=== PATIENT | male | born 2005 | race Caucasian/White ===

== ENCOUNTER 2023-12-11 07:12 | Emergency (ER) | payer MEDICAID, SELFPAY ==
[2023-12-11 07:16] VITALS: BP 133/71; PULSE 93; RESP 16; TEMP 36.5; O2SAT 99
--- NOTE | 2023-12-11 07:20 | W.ED.GENAD ---
HPI General Date/Time Provider Initiated Documentation: 12/11/23 07:19. HPI Narrative: MDM This is an overall very well-appearing normothermic and not tachycardic 18-year-old male with a laceration to his back which will require primary closure and several others on his right ankle which will allow to heal by secondary intention. Patient did not lose consciousness and based on [place] CT head no indication for CT head. No neck trauma nor pain to suggest benefit from CT cervical spine. [place] Head CT Criteria Major Criteria GCS < 15 : [No] Open or depressed skull Fx: [No] Sign of Basilar Skull Fx: [No] > 2 Episodes Vomiting: [No] Anticoagulation: [No] Age > 65: [No] Minor Criteria Retrograde Amnesia >30min: [No] Dangerous Mechanism: [No] Per [place] head CT rules, CT head not obtained. The patient had a GCS of 15, no open/depressed skull fracture, no signs of basilar skull fracture (hemotympanum, raccoon eyes, rockwell's sign, CSF [place]/Rhinorrhea), no vomiting, and is less than 65 years of age. No signs of trauma to the chest and no shortness of breath so doubt pneumothorax so I did not obtain chest x-ray. Patient moving all 4 extremities so my suspicion for any acute osseous abnormalities is exceedingly low. Based on the patient's primary immunizations during childhood medication for updated tetanus status. Patient and I discussed suture remove in the ED, at urgent care or with PCP in 7-10 days. We also discuss return to the ED for any streaking signs of infection, foul smell drainage from his wounds, fevers or any other concerns. He understood his return indications and was discharged with an empiric trial of expectant outpatient managment. Chronic conditions affecting the care of the patient: N/A History obtained from an outside historian: N/A External record review: N/A Medications: N/A Social determinants of health affecting disposition: N/A Management discussed with: N/A Treatment/interventions considered: N/A Response to therapies provided: N/A HPI This is a previously healthy 18-year-old male up-to-date with immunizations not on any home medications arriving to the emergency department via private vehicle after a pane of glass fell on him just prior to arrival. Patient was reportedly opening a window at his rental to allow some cool air into his warm residence. The pain of glass from a window fell out of the frame and shattered on the patient. He did not notice any significant lacerations that required control of bleeding. He denies any anticoagulants. He did not lose consciousness. He was in his previous state of health earlier today with no fevers chills nausea nor vomiting. Exam General: Well-appearing in no acute distress speaking in complete sentences. Head: Normocephalic, atraumatic. Eye: Extraocular eye movements intact. No conjunctival injection. No scleral icterus. Ear, nose, mouth, throat: Grossly normal inspection. Normal voice, handling secretions normally. Neck: Trachea midline. No midline cervical spinal tenderness Cardiovascular: Well-perfused distal extremities. Respiratory: Nonlabored respiration. Gastrointestinal: Nondistended abdomen. Musculoskeletal: No edema. Moving all 4 extremities spontaneously. Skin: On the patient's left upper back there is a small, ~2 cm laceration. On the right ankle, medial aspect there are 2 less than 1 cm superficial lacerations that are also hemostatic. Neurologic: Alert and appropriate, no apparent acute deficits. GCS 15. Psychiatric: Mood and manner are appropriate. Grooming and personal hygiene are appropriate. Related Data Home Medications Medication Instructions Recorded Confirmed Unknown [No Known Home Meds] 12/11/23 12/11/23 Allergies Allergy/AdvReac Type Severity Reaction Status Date / Time No Known Allergies Allergy Unverified 12/11/23 07:16 General Stated Complaint: Laceration MEGHA: 4 Course Vital Signs Vital signs: Vital Signs Temperature 36.5 C 12/11/23 07:16 Pulse 93 H 12/11/23 07:16 Respiratory Rate 16 12/11/23 07:16 Blood Pressure 133/71 12/11/23 07:16 Pulse Oximetry 99 12/11/23 07:16 Temperature 36.5 C 12/11/23 07:16 Temperature Source Temporal Artery Scan 12/11/23 07:16 Pulse 93 H 12/11/23 07:16 Respiratory Rate 16 12/11/23 07:16 Blood Pressure 133/71 12/11/23 07:16 Blood Pressure Position Sitting 12/11/23 07:16 Pulse Oximetry 99 12/11/23 07:16 Oxygen Delivery Method Room Air 12/11/23 07:16 Oxygen Flow Rate 0 12/11/23 07:16 Pain Level 4 12/11/23 07:16 Procedures Laceration Laceration 1: Site: back Side (If applicable): left Size (cm): 2 Description: linear Depth: simple, single layer Local Anesthetic: other anesthetic (LET) Pre-repair: wound explored and irrigated extensively Skin layer closed with: nylon Size (cm): 4-0 Number of sutures: 1 Technique: simple, interrupted Medical Decision Making Quality:SDOH Health Related Social Needs: No Data to Display PFSH All Active Problems (Updated 12/11/23 @ 07:50 by Ethan Daley MD) Laceration of back (Acute) Superficial laceration of ankle (Acute) Social History Smoking/Tobacco Use Status: Never Smoking risk assessment performed?: Yes Alcohol Intake: current Alcohol Intake frequency: holidays/special occasions only Alcohol type: beer Drug use: Never Substance use type: does not use Housing: apartment Do you feel safe at home: Yes Do you feel safe in your relationship?: Yes Discharge Plan Disposition Patient Disposition: Home Discharge Details Clinical Impression: Superficial laceration of ankle, Laceration of back Primary Care Provider: Vandana,Local ED Provider: Ethan Daley Home Meds and New Rx's Prescriptions: No Action No Known Home Meds Discharge Instructions Instructions: Laceration (ED) Additional Instructions: You are seen in the emergency department for your lacerations. The laceration on your back was closed with sutures that need to be removed in 7 to 10 days. This can be accomplished either with your primary care provider, an urgent care, or by returning to the emergency department. As we discussed if you see streaking signs of infection develop any fevers or have any foul-smelling drainage from your wounds please return to the emergency department. For your pain please take medications as follows: 1. Take acetaminophen (Tylenol), 1,000 mg (two 500 mg tabs) every 6 hours [2. Take ibuprofen (Advil), 400 mg every 6 hours.] Discharge Data Discharge Date/Time-TO BE ENTERED AT DEPARTURE: 12/11/23 08:31
[2023-12-11] MEDS: Lidocaine/Epinephri/Tetracaine Topical Gel 3 ML TP (08:22)
== END 2023-12-11 08:31 | disposition home or self-care (01) ==
LOC: ER 08:33
PROVIDERS: Emergency Provider Emergency Medicine
DX: S21.212A Laceration without foreign body of left back wall of thorax without penetration into thoracic cavity, initial encounter (principal); S91.011A Laceration without foreign body, right ankle, initial encounter; W25.XXXA Contact with sharp glass, initial encounter; Y93.89 Activity, other specified; Y92.018 Other place in single-family (private) house as the place of occurrence of the external cause
CPT/HCPCS: 12001; 99283

== ENCOUNTER 2023-12-22 15:45 | Emergency (ER) | payer MEDICAID, SELFPAY ==
[2023-12-22 15:51] VITALS: BP 126/70; PULSE 98; RESP 15; TEMP 36.8; O2SAT 100
--- NOTE | 2023-12-22 16:04 | ED.GENADUL_ITS ---
Discharge Plan Disposition Patient Disposition: Home Condition: Improving Discharge Details Clinical Impression: Visit for suture removal Primary Care Provider: Unknown,Unknown ED Provider: Raymundo De Leon Home Meds and New Rx's Prescriptions: No Action sucralfate [Carafate] 1 gram tablet 1 g PO BID Qty: 60 0RF ondansetron 4 mg tablet,disintegrating 4 mg PO Q8H Qty: 20 0RF pantoprazole [Protonix] 40 mg tablet,delayed release (DR/EC) 40 mg PO DAILY Qty: 60 0RF Discharge Instructions Instructions: Laceration (ED), Stitches Removal (ED) Discharge Data Discharge Date/Time-TO BE ENTERED AT DEPARTURE: 12/22/23 16:09 HPI General Date/Time Provider Initiated Documentation: 12/22/23 15:54 . HPI Narrative: 18-year-old male presents for suture removal once interrupted suture left shoulder. Related Data Home Medications Medication Instructions Recorded Confirmed ondansetron 4 mg disintegrating 4 mg PO Q8H #20 tabs 02/04/24 tablet pantoprazole 40 mg tablet,delayed 40 mg PO DAILY #60 tabs 02/04/24 release (Protonix) sucralfate 1 gram tablet (Carafate) 1 g PO BID #60 tabs 02/04/24 Previous Rx's Medication Instructions Recorded ondansetron 4 mg disintegrating 4 mg PO Q8H #20 tabs 02/04/24 tablet pantoprazole 40 mg tablet,delayed 40 mg PO DAILY #60 tabs 02/04/24 release (Protonix) sucralfate 1 gram tablet (Carafate) 1 g PO BID #60 tabs 02/04/24 Allergies Allergy/AdvReac Type Severity Reaction Status Date / Time No Known Allergies Allergy Unverified 02/03/24 21:57 General Stated Complaint: SutureRem MEGHA: 4 Review of Systems Narrative: Review of Systems Constitutional: negative Eyes: negative ENT: negative Cardiovascular: negative Respiratory: negative Gastrointestinal: negative : negative Musculoskeletal: negative Skin: Suture removal Neurologic: negative Psych: negative Exam Narrative Exam Narrative: Skin: Well-healing 1 cm laceration to left shoulder posterior, simple interrupted nonabsorbable suture material in place clean dry intact Course Vital Signs Vital signs: Vital Signs Temperature 36.8 C 12/22/23 15:51 Pulse 98 H 12/22/23 15:51 Respiratory Rate 15 12/22/23 15:51 Blood Pressure 126/70 12/22/23 15:51 Pulse Oximetry 100 12/22/23 15:51 Temperature 36.8 C 12/22/23 15:51 Temperature Source Temporal Artery Scan 12/22/23 15:51 Pulse 98 H 12/22/23 15:51 Respiratory Rate 15 12/22/23 15:51 Respiratory Effort Normal 12/22/23 15:52 Blood Pressure 126/70 12/22/23 15:51 Blood Pressure Position Sitting 12/22/23 15:51 Pulse Oximetry 100 12/22/23 15:51 Oxygen Delivery Method Room Air 12/22/23 15:51 Oxygen Flow Rate 0 12/22/23 15:51 Pain Level 0 12/22/23 15:51 Medical Decision Making 18-year-old male presents for suture removal, well-healed 1 cm superficial laceration to posterior aspect of left shoulder, suture easily removed, no evidence of infection or wound dehiscence. 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
== END 2023-12-22 16:09 | disposition home or self-care (01) ==
PROVIDERS: Emergency Provider Emergency Medicine
DX: Z48.02 Encounter for removal of sutures (principal)

== ENCOUNTER 2024-02-03 21:47 | Emergency (ER) | payer MEDICAID, SELFPAY ==
[2024-02-03 21:51] VITALS: BP 121/56; PULSE 77; RESP 16; TEMP 36.3; O2SAT 99
--- NOTE | 2024-02-03 22:26 | ED.GENADUL_ITS ---
Discharge Plan Disposition Patient Disposition: Home Condition: Good Discharge Details Clinical Impression: Abdominal pain, Vomiting, Dehydration Primary Care Provider: None,None ED Provider: Flavio Barros Home Meds and New Rx's Prescriptions: New sucralfate [Carafate] 1 gram tablet 1 g PO BID Qty: 60 0RF ondansetron 4 mg tablet,disintegrating 4 mg PO Q8H Qty: 20 0RF pantoprazole [Protonix] 40 mg tablet,delayed release (DR/EC) 40 mg PO DAILY Qty: 60 0RF Discharge Instructions Instructions: Gastritis (ED) Additional Instructions: At this time your laboratory workup has returned very reassuring. There is no signs of significant infection, pancreatitis, gallbladder problem, or other significant abnormality. The CAT scan shows no evidence of tumor, mass, or other major issue. You do have a small hiatal hernia which is when your stomach goes slightly up into the space where your esophagus is. This can cause some of the symptoms that you have been having more chronically. In the meantime, we have placed a referral with a surgeon for an EGD and further evaluation. They will contact you for an appointment time. Please stay well- hydrated, take the Protonix and Carafate to help with the irritation in your stomach. Take the Zofran only as needed for nausea. Avoid spicy foods, tomato- based products and mint products. If you notice any worsening of your symptoms, or any new symptoms such as vomiting, diarrhea, fever, chills, shortness of breath, chest pain, numbness, weakness, or fainting , please return immediately to the emergency department for reevaluation. Please follow up with your primary care provider as soon as possible for reassessment and reevaluation. As always, it was a pleasure participating in your medical care today. Stand Alone Forms: Work Release Referrals: Marissa Jeffers MD [ [facility] STAFF PHYSICIAN] - Rayray Meneses MD [ [facility] STAFF PHYSICIAN] - Amber Shah DO [OSTEOPATHIC DOCTOR] - [facility] General Date/Time Provider Initiated Documentation: 02/03/24 22:06 . [facility] Narrative: 18-year-old male who presents today for evaluation of abdominal pain and vomiting. Patient states that for the past year he has had fairly consistent episodes of vomiting every month, usually occurs in the morning. He he has mild lower abdominal pain during that time which she describes as sharp and achy. It then improves throughout the day. Over the last week he has had notable worsening and increased frequency of the symptoms occurring nearly every day. He has been vomiting multiple times throughout the day over the last 3 to 4 days, and this is significantly affecting his life. He is still keeping liquids down, he denies any significant diarrhea. No hematochezia. He denies any blood in his vomitus. He states that it is usually food that he throws up however over the last 24 hours it has been more bile and stomach acid like. He denies any new medications, or lifestyle changes. Patient does have a history of marijuana nightly that he takes for his chronic back pain but states that he has not changed the amount or frequency, and has not changed where he gets it from. He has not had an EGD or colonoscopy in the past. Family history is positive for stomach ulcer. He denies any excessive spicy foods. No other sick contacts at home. No other complaints at this time. He has not taken any medications to help his symptoms. Related Data Home Medications Medication Instructions Recorded Confirmed ondansetron 4 mg disintegrating 4 mg PO Q8H #20 tabs 02/04/24 tablet pantoprazole 40 mg tablet,delayed 40 mg PO DAILY #60 tabs 02/04/24 release (Protonix) sucralfate 1 gram tablet (Carafate) 1 g PO BID #60 tabs 02/04/24 Previous Rx's Medication Instructions Recorded ondansetron 4 mg disintegrating 4 mg PO Q8H #20 tabs 02/04/24 tablet pantoprazole 40 mg tablet,delayed 40 mg PO DAILY #60 tabs 02/04/24 release (Protonix) sucralfate 1 gram tablet (Carafate) 1 g PO BID #60 tabs 02/04/24 Allergies Allergy/AdvReac Type Severity Reaction Status Date / Time No Known Allergies Allergy Unverified 02/03/24 21:57 General Stated Complaint: Abd Prob MEGHA: 3 Review of Systems All systems reviewed & are unremarkable except as noted in HPI and below Exam Narrative Exam Narrative: 1.Const: Well-nourished, Well-developed, appearing stated age 2.Eyes: PERRL, no conjunctival injection, and symmetrical lids. 3.ENT: Atraumatic external nose and ears. Dry MM. Neck: Symmetric, trachea midline, No thyromegaly. 4.CVS: +S1/S2, No murmurs or gallops. Peripheral pulses 2+ and equal in all extremities. Brisk capillary refill in all extremities. 5.RESP: Unlabored respiratory effort. Clear to auscultation bilaterally. No wheezes rales or rhonchi 6.GI: Soft, Nondistended, No hepatosplenomegaly. No guarding or rebound. Mild achiness in the infraumbilical region. No pain to McBurney's point, negative Nuñez sign. No inguinal hernia. No scrotal or testicular tenderness. 7.MSK: Normocephalic/Atraumatic, Extremities w/o deformity or ttp No cyanosis or clubbing, Normal movement of all extremities 8.Skin: Warm, Dry. No rashes or lesions. 9.Neuro: curtain feller blindstitch II-XII grossly intact. Sensation grossly intact, no focal ne urologic deficits. 10.Psych: (AAO) x3. Appropriate mood and affect Course Vital Signs Vital signs: Vital Signs Temperature 36.3 C L 02/03/24 21:51 Pulse 77 02/03/24 21:51 Respiratory Rate 16 02/03/24 21:51 Blood Pressure 121/56 L 02/03/24 21:51 Pulse Oximetry 99 02/03/24 21:51 Temperature 36.3 C L 02/03/24 21:51 Temperature Source Skin 02/03/24 21:51 Pulse 77 02/03/24 21:51 Respiratory Rate 16 02/03/24 21:51 Respiratory Effort Normal, Non-Labored 02/03/24 21:55 Blood Pressure 121/56 L 02/03/24 21:51 Blood Pressure Position Sitting 02/03/24 21:51 Pulse Oximetry 99 02/03/24 21:51 Oxygen Delivery Method Room Air 02/03/24 21:51 Oxygen Flow Rate 0 02/03/24 21:51 Pain Level 5 02/03/24 21:51 Medical Decision Making 18-year-old male who presents today for evaluation of abdominal pain and vomiting. Patient states that for the past year he has had fairly consistent episodes of vomiting every month, usually occurs in the morning. He he has mild lower abdominal pain during that time which she describes as sharp and achy. It then improves throughout the day. Over the last week he has had notable worsening and increased frequency of the symptoms occurring nearly every day. He has been vomiting multiple times throughout the day over the last 3 to 4 days, and this is significantly affecting his life. He is still keeping liquids down, he denies any significant diarrhea. No hematochezia. He denies any blood in his vomitus. He states that it is usually food that he throws up however over the last 24 hours it has been more bile and stomach acid like. He denies any new medications, or lifestyle changes. Patient does have a history of marijuana nightly that he takes for his chronic back pain but states that he has not changed the amount or frequency, and has not changed where he gets it from. He has not had an EGD or colonoscopy in the past. Family history is positive for stomach ulcer. He denies any excessive spicy foods. No other sick contacts at home. No other complaints at this time. He has not taken any medications to help his symptoms. Physical exam demonstrates well-appearing male, dry mucous membranes, mild achiness in the infraumbilical region. No guarding or rebound, no hernias. Patient otherwise looks well. Differential is highest for baseline of potential chronic gastric irritation or potential ulcer. He does not drink alcohol much at all, so I doubt esophagitis. However the lower component of his pain is slightly atypical. I suspect there is an acute component going on at this time. 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 Chronic pancreatitis or chronic pancreatic cyst is on the differential. Diverticulitis, irritable bowel syndrome, or celiac/Crohn's is of concern as well. Will give Carafate, Protonix, Zofran, rehydrate, check for concerning electrolyte lab abnormalities, get a CT scan of his abdomen to rule out acute anatomic processes, monitor closely and reassess. 12:20 AM Patient's laboratory workup is returned, no significant abnormalities. Lipase is normal, bilirubin normal, electrolytes normal. Urinalysis shows no evidence of kidney stone or blood or infection. After Protonix and Carafate patient is feeling improved, vital signs normal after 1 L of lactated Ringer's. CT scan shows evidence of mild hiatal hernia, but no other acute process otherwise. Patient is stable for discharge. I suspect the hiatal hernia is causing some chronic gastric irritation likely bringing about the patient's regular episodes of vomiting. Recommend avoidance of spicy foods, tomato-based products and citrus products. Will give Protonix and Zofran and Carafate for home use. No evidence of an acute surgical abdomen on reexamination. Patient is tolerating p.o. well. I do feel that patient is stable for discharge at this time. With no other evidence of significant life-threatening etiology at this time we will place outpatient referral for EGD for further gastric assessment. Discussed red flags for which to return. I have extensively reviewed the treatment plan and discharge instructions with the patient and their family. I have addressed all patient concerns at this time. The patient and family was made aware of what symptoms to monitor for that would warrant a return to the emergency department. Discussed the plan with the patient and family, they demonstrate verbal understanding and agreement with our assessment and plan at this time. The documentation in this chart was dictated using [employer] dictation software. Please excuse any dictation errors. FINDINGS: Diaphragm: Small hiatal hernia. Liver: Normal. No mass. Gallbladder and bile ducts: Normal. No calcified stones. No ductal dilation. Pancreas: Normal. No ductal dilation. Spleen: Normal. No splenomegaly. Adrenal glands: Normal. No mass. Kidneys and ureters: Normal. No hydronephrosis. Stomach and bowel: No dilated loops of small bowel or colonic dilatation. Stomach is distended with recently ingested food and a small amount of gas. Appendix: Normal appendix. Intraperitoneal space: Unremarkable. No free air. No significant fluid collection. Vasculature: Unremarkable. No abdominal aortic aneurysm. Lymph nodes: Unremarkable. No enlarged lymph nodes. Urinary bladder: Unremarkable as visualized. Reproductive: Unremarkable as visualized. Bones/joints: Unremarkable. No acute fracture. Soft tissues: Unremarkable. IMPRESSION: No acute findings. Thank you for allowing us to participate in the care of your patient. 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
[2024-02-03] MEDS: Lactated Ringers 1,000 ML 1000 ML IV (22:44)
[2024-02-03] MEDS: Sucralfate 1 GM TAB 2 GM PO (22:44)
[2024-02-03] MEDS: Ondansetron 4 MG/2 ML VIAL IVP (22:44)
[2024-02-03] MEDS: Pantoprazole 40 MG VIAL IVP (22:44)
[2024-02-03 22:48] LABS: Abs Immature Grans 0.01 10^3/uL (0.0-0.06); Absolute Basophil Count 0.07 10^3/uL (0.0-0.2); Absolute Eosinophil Count 0.58 10^3/uL (0.0-0.7); Absolute Lymphocyte Count 2.97 10^3/uL (1.2-3.4); Absolute Monocyte Count 0.53 10^3/uL (0.1-0.8); Absolute Neutrophil Count 3.62 10^3/uL (1.2-6.7); Basophils % 0.9; Eosinophils % 7.5; HCT 46.1 % (40.0-50.0); HGB 15.6 g/dL (13.5-17.5); Immature Grans % 0.1; Lymphocytes % 38.2; MCH 29.9 pg (27.0-33.0); MCHC 33.8 % (32.0-36.0); MCV 89 fL (80-95); MPV 11.3 fL (8.0-11.0); Monocytes % 6.8; Neutrophils % 46.5; Platelet Count 214 10^3/uL (130-400); RBC 5.21 10^6/uL (4.36-5.78); RDW 13.2 % (11.8-14.1); WBC 7.78 10^3/uL (4.4-10.8)
[2024-02-03 23:04] LABS: ALT 26 U/L (16-63); AST 22 U/L (15-37); Albumin 4.3 g/dL (3.4-5.0); Alkaline Phosphatase 74 U/L (46-116); Anion Gap 5.8 mmol/L (3-11); BUN 10 mg/dL (7-18); Bilirubin, Total 0.5 mg/dL (0.2-1.0); CO2 32.2 mmol/L (21.0-32.0); CREATININE 0.9 mg/dL (0.70-1.30); Calcium 8.7 mg/dL (8.5-10.1); Chloride 104 mmol/L (98-107); Estimated GFR 125.39 (mL/min/1.73m2); Glucose 70 mg/dL (74-106); Lipase 15 U/L (16-77); Potassium 3.6 mmol/L (3.5-5.1); Sodium 142 mmol/L (136-145); Total Protein 7.6 g/dL (6.4-8.2)
--- NOTE | 2024-02-03 23:05 | DI.CT_ITS ---
Exam(s) CT ABDOMEN PELVIS W EXAM: CT ABDOMEN PELVIS W CLINICAL HISTORY: vomiting, infraumbilical pain TECHNIQUE: Imaging Protocol: Axial computed tomography images with coronal and sagittal reformatted images were created and reviewed. CONTRAST MATERIAL: Intravenous: Omnipaque 350 Contrast volume:100 mL Oral: No COMPARISON: No exams were available for comparison FINDINGS: ABDOMEN: Lung Bases: Normal where visualized. Liver: Normal density. No measurable mass. Portal, Superior Mesenteric, and Splenic Veins: Unremarkable. Gallbladder and Biliary Tract: No radiodense calculus or dilation. Pancreas: Normal density, no abnormal calcifications or inflammatory process. Spleen: Normal. Adrenals: No masses seen. Kidneys: Normal size, contour and axis. No radiodense stones or obstructive uropathy. No masses seen. Abdominal Aorta: Abdominal portion non-dilated. Bowel: No obstruction or bowel wall thickening. No evidence of appendicitis. Peritoneal Cavity: No ascites, collection or mesenteric inflammatory response. No free air. Lymph Nodes: Within normal limits. Bones: Within normal limits for the patient's age. Soft Tissues: Unremarkable. PELVIS: Bladder: The urinary bladder is incompletely distended limiting evaluation. No gross abnormalities i dentified. Reproductive Organs: Unremarkable as visualized. Lymph Nodes: Within normal limits. Bones: Within normal limits for the patient's age. IMPRESSION: No acute abdominal or pelvic process. RADIATION DOSE DELIVERED: 777.12mGy.cm Total DLP DATA REPOSITORY: All CT scans at this facility are submitted to the National Radiology Data Registry (NRDR) Dose Index Registry (DIR) with the [employer] (A[employer]). RADIATION OPTIMIZATION: All CT scans at this facility use at least one of these dose optimization te chniques: automated exposure control; mA and/or kV adjustment per patient size (includes targeted exa ms where dose is matched to clinical indication); or iterative reconstruction.
[2024-02-03 23:15] VITALS: BP 121/56; PULSE 77; RESP 16; TEMP 36.3; O2SAT 99
[2024-02-03] MEDS: Omnipaque 350 MG/ML 100 ML BTL IJ (23:15)
[2024-02-03] MEDS: Normal Saline - Diluent 50 ML VIAL IJ (23:16)
[2024-02-03 23:51] LABS: Bilirubin Negative (Negative); Blood Negative (Negative); Clarity Clear (Clear); Glucose Negative (Negative); Ketones Negative (Negative); Leukocyte Esterase Negative (Negative); Nitrite Negative (Negative); Specific Gravity >= 1.030 (1.005-1.025); Urobilinogen 0.2 mg/dL (Up to 0.2)
--- NOTE | 2024-02-03 23:55 | DI.VRAD_ITS ---
PROCEDURE INFORMATION: Exam: CT Abdomen And Pelvis With Contrast Exam date and time: 02/03/2024 10:55 PM Age: 18 years old Clinical indication: Abdominal pain; Patient HX: Vomiting, infraumbilical pain TECHNIQUE: Imaging protocol: Computed tomography of the abdomen and pelvis with contrast. Radiation optimization: All CT scans at this facility use at least one of these dose optimization techniques: automated exposure control; mA and/or kV adjustment per patient size (includes targeted exams where dose is matched to clinical indication); or iterative reconstruction. Contrast material: [id number]; Contrast volume: 100 ml; Contrast route: INTRAVENOUS (IV); COMPARISON: No relevant prior studies available. FINDINGS: Diaphragm: Small hiatal hernia. Liver: Normal. No mass. Gallbladder and bile ducts: Normal. No calcified stones. No ductal dilation. Pancreas: Normal. No ductal dilation. Spleen: Normal. No splenomegaly. Adrenal glands: Normal. No mass. Kidneys and ureters: Normal. No hydronephrosis. Stomach and bowel: No dilated loops of small bowel or colonic dilatation. Stomach is distended with recently ingested food and a small amount of gas. Appendix: Normal appendix. Intraperitoneal space: Unremarkable. No free air. No significant fluid collection. Vasculature: Unremarkable. No abdominal aortic aneurysm. Lymph nodes: Unremarkable. No enlarged lymph nodes. Urinary bladder: Unremarkable as visualized. Reproductive: Unremarkable as visualized. Bones/joints: Unremarkable. No acute fracture. Soft tissues: Unremarkable. IMPRESSION: No acute findings. Dictated and Authenticated by: Gonsalo Ortiz MD. Ordering:KEYSHA Muniz MD
[2024-02-04 00:20] VITALS: BP 120/74; PULSE 65; RESP 16; TEMP 37; O2SAT 99
--- NOTE | 2024-02-04 00:24 | NUR.NOTE ---
Pt placed on care management referral list for chronic vomiting, gastritis, and needs an EGD per ER Dr. Barros
== END 2024-02-04 00:20 | disposition home or self-care (01) ==
PROVIDERS: Emergency Provider Student in an Organized Health Care Education/Training Program
DX: K29.70 Gastritis, unspecified, without bleeding (principal); F17.290 Nicotine dependence, other tobacco product, uncomplicated
CPT/HCPCS: 80053; 83690; 96361; 96374; 96375; 99285; 74177; 81003; 85025; 99284; J2405; J2470; J3490

== ENCOUNTER 2024-02-15 16:01 | Emergency (ER) | payer MEDICAID, SELFPAY ==
[2024-02-15 16:03] VITALS: BP 151/73; PULSE 82; RESP 20; TEMP 36.3; O2SAT 100
--- NOTE | 2024-02-15 16:22 | W.ED.GENAD ---
Discharge Plan Disposition Patient Disposition: Home Condition: Stable Discharge Details Clinical Impression: Costochondritis Primary Care Provider: Unknown,Unknown ED Provider: Flavio Hernandez Home Meds and New Rx's Prescriptions: Continued sucralfate [Carafate] 1 gram tablet 1 g PO BID Qty: 60 0RF ondansetron 4 mg tablet,disintegrating 4 mg PO Q8H Qty: 20 0RF pantoprazole [Protonix] 40 mg tablet,delayed release (DR/EC) 40 mg PO DAILY Qty: 60 0RF Discharge Instructions Instructions: Costochondritis (ED) Additional Instructions: You were seen in the emergency department for your left central rib pain after coughing fit. Chest x-ray shows no rib fracture, no pop lung or pneumothorax, no rib displacement, no pneumonia. Your COVID and flu swab are negative. Please use therapeutic dosing of Tylenol (acetamenophen) & Advil (ibuprofen) in an alternating fashion as follows: Take 1000mg of Tylenol every 6 hours without missing doses- that is 4 times per day. Residential in between the Tylenol dosings, take 400-600mg of Advil also on a 6 hour schedule, that is also 4 times per day. The daily maximum dosing of Tylenol is 4000mg, and the daily maximum dosing of Advil is 2400mg. This is safe to do for weeks. Please note that some common cold medications & prescription pain medications may contain acetamenophen and you need to read OTC drug labels and factor that in to maximum daily dosings. Apply gentle heat and gentle massage to the area of pain. 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 Stand Alone Forms: Work Release HPI General Date/Time Provider Initiated Documentation: 02/15/24 16:22. HPI Narrative: 18 year-old male presents to ED today by POV/ambulating with his girlfriend with a chief complaint of sternal/chest wall pain after significant coughing fit, pain with movement, pain with deep breathing with onset this morning. Several coughing fits over the past few days. Quality described as burning sternal pain, no radiation to hemoptysis, tachycardia, chest pain with exertion, bruising, productive cough. Severity is described as moderate. Palliating factors include nothing specific attempted. Provoking factors include nothing specific. Patient not anticoagulated. Related Data Home Medications Medication Instructions Recorded Confirmed ondansetron 4 mg disintegrating 4 mg PO Q8H #20 tabs 02/04/24 02/15/24 tablet pantoprazole 40 mg tablet,delayed 40 mg PO DAILY #60 tabs 02/04/24 02/15/24 release (Protonix) sucralfate 1 gram tablet (Carafate) 1 g PO BID #60 tabs 02/04/24 02/15/24 Previous Rx's Medication Instructions Recorded ondansetron 4 mg disintegrating 4 mg PO Q8H #20 tabs 02/04/24 tablet pantoprazole 40 mg tablet,delayed 40 mg PO DAILY #60 tabs 02/04/24 release (Protonix) sucralfate 1 gram tablet (Carafate) 1 g PO BID #60 tabs 02/04/24 Allergies Allergy/AdvReac Type Severity Reaction Status Date / Time No Known Allergies Allergy Unverified 02/03/24 21:57 General Stated Complaint: Chest/Rib MEGHA: 3 Review of Systems All systems reviewed & are unremarkable except as noted in HPI and below Exam Narrative Exam Narrative: GENERAL APPEARANCE: Well-nourished, non-toxic, awake and alert, atraumatic, no acute distress. SKIN: Warm, pink, dry, intact, without rashes/lesions/ulcerations. HEAD: Normocephalic, atraumatic, normal hair distribution for gender/age. EYES: Normal conjunctiva, no exudates on lids/lashes. ENT: Nares patent, no circumoral cyanosis, no facial swelling NECK: Supple, trachea midline, painless cervical ROM. LUNGS/CHEST: Lungs CTA bilaterally- no rhonchi/rales/wheezes diffusely, no focally diminished or absent lung sounds, non-labored respirations, normal A/P diameter, symmetrical expansion, no chest wall deformity, tenderness in L sternocostal junctions of upper ribs, no instability HEART (CV/PV): Regular rate and rhythm without murmur, no peripheral edema, no JVD. ABDOMEN: Soft, non-distended, no guarding, no tenderness. MSK: Normal ROM, no swelling/deformity to bilateral UEs or LEs, moving all extremities without weakness, no cyanosis, spine midline without tenderness, normal curvature. NEURO: Mental Status AAOx4 - alert to person, place, time, events No facial droop, no forehead involvement. Motor: No focal weakness - strength 5/5 in bilateral UEs and LEs, proximal and distal, symmetric. Sensory: sensation intact to light touch globally. Gait normal: patient ambulated without ataxia into ED room. PSYCH: euthymic, cooperative, pleasant, appropriate speech Course Vital Signs Vital signs: Vital Signs Temperature 36.3 C L 02/15/24 16:03 Pulse 82 02/15/24 16:03 Respiratory Rate 20 02/15/24 16:03 Blood Pressure 151/73 H 02/15/24 16:03 Pulse Oximetry 100 02/15/24 16:03 Temperature 36.3 C L 02/15/24 16:03 Temperature Source Tympanic 02/15/24 16:03 Pulse 82 02/15/24 16:03 Respiratory Rate 20 02/15/24 16:03 Respiratory Effort Normal 02/15/24 16:06 Respiratory Depth Normal 02/15/24 16:06 Respiratory Pattern Normal 02/15/24 16:06 Blood Pressure 151/73 H 02/15/24 16:03 Blood Pressure Position Sitting 02/15/24 16:03 Pulse Oximetry 100 02/15/24 16:03 Oxygen Delivery Method Room Air 02/15/24 16:03 Oxygen Flow Rate 0 02/15/24 16:03 Medical Decision Making This dictation utilizes [id number] dictation software and may contain unedited grammatical errors. 18 y/o M presents to ED today with a chief complaint of coughing fits for a few days, significant coughing episode this morning, felt like he fractured a rib- having L central upper costosternal junction pain, burning sensation, denies productive cough/fever, denies shortness of breath. Endorses pain with arm movement and palpation. 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 Patients' medical history: Noncontributory. Family and social history: Noncontributory. Pertinent exam findings / vital signs include no focal diminished or absent lung sounds, breath sounds clear without rhonchi or rales or wheezing, benign cardiac exam, benign abdomen, no crepitus to chest wall. Differential / pathologies of concern include pneumothorax, rib fracture, costochondritis, pneumonia, viral syndrome. Diagnostic studies of: -POC Covid/Flu Rapid Ag, XR Rib Series w 2V chest. -Covid/flu neg -benign CXR, no PTX, no fracture Interventions of: -none, had ordered meds/lido patch but staff didn't see orders prior to discharge, had discussed APAP/Motrin and patient was OK with that ED Course/Assessment/Plan: 18-year-old male presents requesting work note for left rib pain after coughing fit this morning, he was open to testing for COVID and the flu which was negative, I reassured him that he likely has musculoskeletal pain in between some ribs and unlikely to fractured his ribs from coughing, he has no evidence of pneumothorax on chest x-ray. I counseled him on therapeutic dosing of Tylenol and ibuprofen with strict return criteria for any worsening despite treatment. Findings not consistent with pneumothorax, pneumonia, rib fracture, unlikely PE, Wells low risk. Disposition of costochondritis. Patient verbalized understanding of the plan and return to ED criteria and engaged in shared decision making. Medical Records Medical records reviewed: Yes I reviewed the patient's medical records. Imaging Data Radiologic Study: Attestation: I personally reviewed and interpreted this imaging study as follows: Imaging: X-Ray Radiologist's impression: XR RIBS LT W PA LAT CHEST CLINICAL HISTORY L 3/4 rib pain, caused by severe cough. COMPARISON: No exams were available for comparison TECHNIQUE:: PA and lateral views of the chest and four views of the left ribs were performed. FINDINGS: LUNGS: Clear. No pleural abnormality seen. HEART: Normal. MEDIASTINUM: Normal. BONES: No displaced rib fracture is seen. No compression fractures are seen in the thoracic spine. No bony destructive lesion is seen. IMPRESSION: 1. Unremarkable radiographic appearance of the left ribs. 2. No acute pulmonary findings. Lab Data Lab results reviewed: Yes I reviewed the patient's lab results. 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
--- NOTE | 2024-02-15 16:30 | DI.RAD_ITS ---
Exam(s) XR RIBS LT W PA LAT CHEST CLINICAL HISTORY L 3/4 rib pain, caused by severe cough. COMPARISON: No exams were available for comparison TECHNIQUE:: PA and lateral views of the chest and four views of the left ribs were performed. FINDINGS: LUNGS: Clear. No pleural abnormality seen. HEART: Normal. MEDIASTINUM: Normal. BONES: No displaced rib fracture is seen. No compression fractures are seen in the thoracic spine. No bony destructive lesion is seen. IMPRESSION: 1. Unremarkable radiographic appearance of the left ribs. 2. No acute pulmonary findings.
[2024-02-15 18:03] VITALS: BP 109/59; PULSE 64; RESP 15; O2SAT 99
--- NOTE | 2024-02-15 18:24 | NUR.NOTE ---
Pt left prior to pain medication being administered. Pt stated he would take Tylenol and IBU when he got home as directed. Nursing Note:
== END 2024-02-15 18:25 | disposition home or self-care (01) ==
PROVIDERS: Emergency Provider Physician Assistant
DX: M94.0 Chondrocostal junction syndrome [Tietze] (principal); R05.9 Cough, unspecified; F17.290 Nicotine dependence, other tobacco product, uncomplicated
CPT/HCPCS: 87426; 99284; 71046; 71100

== ENCOUNTER 2024-05-29 06:41 | Emergency (ER) | payer MEDICAID, SELFPAY ==
[2024-05-29 06:44] VITALS: BP 133/80; PULSE 127; RESP 16; TEMP 36.6; O2SAT 100
--- NOTE | 2024-05-29 07:14 | ED.GENADUL_ITS ---
Discharge Plan Disposition Patient Disposition: Home Condition: Good Discharge Details Clinical Impression: Left shoulder strain, Muscle spasm Primary Care Provider: Unknown,Unknown ED Provider: Flavio Barros Home Meds and New Rx's Prescriptions: New cyclobenzaprine 10 mg tablet 10 mg PO TID Qty: 30 1RF Discharge Instructions Instructions: Muscle Strain ED Additional Instructions: At this time your exam demonstrates evidence of notable strain in your left shoulder and scapular musculature. Please take the Flexeril as prescribed. Please apply heat regularly, and stretch the shoulder and the scapular muscles in all directions. Please avoid any significant heavy lifting or use with your left shoulder for the next 3 to 5 days. If you notice any worsening of your symptoms, or any new symptoms such as vomiting, diarrhea, fever, chills, shortness of breath, chest pain, numbness, weakness, or fainting , please return immediately to the emergency department for reevaluation. Please follow up with your primary care provider as soon as possible for reassessment and reevaluation. As always, it was a pleasure participating in your medical care today. Stand Alone Forms: Work Release Discharge Data Discharge Date/Time-TO BE ENTERED AT DEPARTURE: 05/29/24 07:28 HPI General Date/Time Provider Initiated Documentation: 05/29/24 07:14 . HPI Narrative: 18-year-old male presents today for evaluation of left back pa in/shoulder pain. 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 Since then he has had achiness in his scapular area and shoulder. He describes it as a burning stinging sensation. His shoulder feels tight, it is worse with movement. He denies any radiation to his arm or loss otherwise. No other complaints at this time. Related Data Home Medications ?Medication ?Instructions ?Recorded ?Confirmed cyclobenzaprine 10 mg tablet 10 mg PO TID #30 tabs 05/29/24 Previous Rx's ?Medication ?Instructions ?Recorded cyclobenzaprine 10 mg tablet 10 mg PO TID #30 tabs 05/29/24 Allergies Allergy/AdvReac Type Severity Reaction Status Date / Time guaifenesin (From Robitussin) AdvReac Mild foggy, put Verified 05/29/24 07:20 his in a weird head space General Stated Complaint: Orthopedic MEGHA: 3 Review of Systems All systems reviewed & are unremarkable except as noted in HPI and below Exam Narrative Exam Narrative: 1.Const: Well-nourished, Well-developed, appearing stated age 2.Eyes: PERRL, no conjunctival injection, and symmetrical lids. 3.ENT: Atraumatic external nose and ears. Moist MM. Neck: Symmetric, trachea midline, No thyromegaly. 4.CVS: +S1/S2, No murmurs or gallops. Peripheral pulses 2+ and equal in all extremities. Brisk capillary refill in all extremities. Radial pulses +2 bilaterally. Yesterday we had 3 rooms, 3 patients in the lobby would been there for 40 minutes came out is like why the heck to rehab patients waiting out. Some function 5.RESP: Unlabored respiratory effort. Clear to auscultation bilaterally. No wheezes rales or rhonchi 6.GI: Soft, Nontender/Nondistended, No hepatosplenomegaly. No guarding or rebound. 7.MSK: Normocephalic/Atraumatic, Extremities w/o deformity or ttp No cyanosis or clubbing, Normal movement of all extremities. Physical exam demonstrates notable muscle spasm and tenderness over rhomboid major and minor, trapezius also feels relatively tense, lateral movement of her neck exacerbates this tens ion. The pain. No humeral tenderness, no tenderness over infraspinatus and supraspinatus musculature. Normal movement at the shoulder. 8.Skin: Warm, Dry. No rashes or lesions. 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 Sensation grossly intact, no focal neurologic deficits. 10.Psych: (AAO) x3. Appropriate mood and affect Course Vital Signs Vital signs: Vital Signs Temperature 36.6 C 05/29/24 06:44 Pulse 127 H 05/29/24 06:44 Respiratory Rate 16 05/29/24 06:44 Blood Pressure 133/80 05/29/24 06:44 Pulse Oximetry 100 05/29/24 06:44 Temperature 36.6 C 05/29/24 06:44 Temperature Source Temporal Artery Scan 05/29/24 06:44 Pulse 127 H 05/29/24 06:44 Respiratory Rate 16 05/29/24 06:44 Respiratory Effort Normal 05/29/24 06:47 Blood Pressure 133/80 05/29/24 06:44 Pulse Oximetry 100 05/29/24 06:44 Pain Level 8 05/29/24 06:44 Medical Decision Making 18-year-old male presents today for evaluation of left back pain/shoulder pain. 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 Since then he has had achiness in his scapular area and shoulder. He describes it as a burning stinging sensation. His shoulder feels tight, it is worse with movement. He denies any radiation to his arm or loss otherwise. No other complaints at this time. Physical exam demonstrates notable spasm of the rhomboid major minor and some spasm and tenderness over the trapezius for the left shoulder. No signs of bony tenderness otherwise, no abnormalities for the shoulder itself, no C-spine or thoracic spine tenderness midline. Symptoms appear consistent with muscle strain, inconsistent with meningitis, osseous abnormality, trauma, tumor or mass. Will recommend NSAID therapy, heat, rest, and muscle relaxants. Recommend stretching exercises to help with the muscle spasms. Will give work note. Discussed red flags for which to return. I have extensively reviewed the treatment plan and discharge instructions with the patient. I have addressed all patient concerns at this time. The patient was made aware of what symptoms to monitor for that would warrant a return to the emergency department. Discussed the plan with the patient, they demonstrate verbal understanding and agreement with our assessment and plan at this time. The documentation in this chart was dictated using [employer] dictation software. Please excuse any dictation errors. 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 Housing: apartment Do you feel safe at home: Yes Do you feel safe in your relationship?: Yes PAWSS Have you Been Recently Intoxicated or Drunk Within the Last 30 days?: No Have you Ever Experienced Previous Episodes of Alcohol Withdrawal?: No Have you ever Experienced Withdrawal Seizures?: No Have you ever Experienced Delirium Tremens(DT)s?: No Have you ever undergone Alcohol Rehabilitation Treatment (i.e, inpt ot outpatient treatment programs)?: No Have you ever Experienced Blackouts?: No Have you ever Combined Alcohol with other Downers within the last 90 days?: No Have you ever Combined Alcohol with any other Substance of Abuse during the last 90 days?: No Result: 0
[2024-05-29] MEDS: Lidocaine 5% Patch 1 PATCH TP (07:21)
[2024-05-29] MEDS: Cyclobenzaprine 10 MG TAB, 3 TABS/BTL PO (07:21)
== END 2024-05-29 07:28 | disposition home or self-care (01) ==
LOC: ER 07:18
PROVIDERS: Emergency Provider Student in an Organized Health Care Education/Training Program
DX: S46.912A Strain of unspecified muscle, fascia and tendon at shoulder and upper arm level, left arm, initial encounter (principal); M62.838 Other muscle spasm; X50.0XXA Overexertion from strenuous movement or load, initial encounter
CPT/HCPCS: 99283